=== PATIENT | female | born 1945 | race Caucasian/White ===

== ENCOUNTER 2018-03-26 09:43 | Emergency (ER) | payer MEDICARE ==
[~2018-03-26] VITALS: Ht 156.2 cm; Wt 84.2 kg
[2018-03-26] MEDS ORDERED: SODIUM CHLORIDE 0.9% 1,000ML IVBOLUS ONE (10:30)
[2018-03-26] MEDS ORDERED: SODIUM CHLORIDE FLUSH 10ML SYR IVF ONE (10:30)
[2018-03-26] MEDS ORDERED: FAMOTIDINE 20 MG/2 ML IVP ONE (10:30)
[2018-03-26] MEDS ORDERED: ONDANSETRON 2MG/ML, 2ML IVPush ONE (10:30)
[2018-03-26] MEDS ORDERED: MAALOX/HYOSCYAMINE/LIDOCAINE 45 ML BTL PO ONE (10:30)
[2018-03-26 10:40] LABS: BASOPHILS # (AUTO) 0.03 x10^3/uL (0-0.1); BASOPHILS % (AUTO) 1 % (0-1); EOSINOPHILS # (AUTO) 0.17 x10^3/uL (0-0.4); EOSINOPHILS % (AUTO) 3 % (1-7); LYMPHOCYTES % (AUTO) 29 % (22-44); MD NO; MEAN CORPUSCULAR HEMOGLOBIN 31.3 pg (27.0-34.8); MEAN CORPUSCULAR HGB CONC 33.8 g/dL (32.4-35.8); MEAN CORPUSCULAR VOLUME 92.8 fL (80-100); MEAN PLATELET VOLUME 8.9 fL (7.4-10.4); MONOCYTES # (AUTO) 0.49 x10^3/uL (0.2-0.8); MONOCYTES % (AUTO) 8 % (2-9); NEUTROPHILS # (AUTO) 3.92 x10^3/uL (1.8-6.8); NEUTROPHILS % (AUTO) 60 % (42-75); PLATELET COUNT 327 x10^3/uL (130-400); RED BLOOD COUNT 4.51 x10^6/uL (3.82-5.3); RED CELL DISTRIBUTION WIDTH 13.3 % (9.6-15.2)
[2018-03-26] MEDS ORDERED: FAMOTIDINE 20 MG/2 ML ONE (10:51)
[2018-03-26] MEDS ORDERED: MAALOX/HYOSCYAMINE/LIDOCAINE 45 ML BTL ONE (10:51)
[2018-03-26] MEDS ORDERED: ONDANSETRON 2MG/ML, 2ML ONE (10:51)
[2018-03-26 10:53] LABS: ALANINE AMINOTRANSFERASE 47 U/L (12-78); ALBUMIN 3.8 g/dL (3.4-5.0); ANION GAP 9 mmol/L (5-15); CALCIUM 9.2 mg/dL (8.5-10.1); CHLORIDE 103 mmol/L (98-107); CREATININE 0.89 mg/dL (0.55-1.02)
[2018-03-26 10:55] LABS: ALKALINE PHOSPHATASE 110 U/L (45-117); BILIRUBIN,TOTAL 0.8 mg/dL (0.2-1.0); TOTAL PROTEIN 7.2 g/dL (6.4-8.2)
[2018-03-26 11:19] LABS: MICROSCOPIC INDICATED
[2018-03-26 11:35] LABS: CULTURE INDICATED? YES
[2018-03-26] MEDS ORDERED: CEFTRIAXONE PMX 1GM/50ML 50 ML IV ONE (13:30)
[2018-03-26] MEDS ORDERED: CEFTRIAXONE PMX 1GM/50ML 50 ML ONE (13:33)
[2018-03-26 14:02] VITALS: BP 136/65
== END 2018-03-26 14:28 | disposition home or self-care (01) ==
LOC: ED 12:46
DX: N30.90 Cystitis, unspecified without hematuria (principal); I10 Essential (primary) hypertension; E78.00 Pure hypercholesterolemia, unspecified
CPT/HCPCS: 36415; 76700; 76830; 80053; 81001; 83690; 85025; 86677; 87086; 87147; 96365; 96375; 99285; J0696; J2405; J7030; S0028

== ENCOUNTER 2018-11-28 16:12 | Emergency (ER) | payer MEDICARE ==
[~2018-11-28] VITALS: Ht 167.6 cm; Wt 86.3 kg
[2018-11-28 16:15] VITALS: BP 184/86
[2018-11-28] MEDS ORDERED: ATOR40TA78 PO (16:55)
[2018-11-28] MEDS ORDERED: HYDROcodone/APAP 5/325 TABLET PO STA (17:01)
[2018-11-28] MEDS ORDERED: HYDROcodone/APAP 5/325 TABLET ONE (17:03)
[2018-11-28] MEDS ORDERED: HYDROcodone/APAP 5/325 TABLET PO ONE (18:00)
[2018-11-28] MEDS ORDERED: CYCLOBENZAPRINE 10 MG TABLET ONE (18:02)
[2018-11-28] MEDS ORDERED: CYCLOBENZAPRINE 10 MG TABLET PO STA (18:02)
--- NOTE | 2018-11-28 18:59 | NUR ---
Patient/Caregiver given discharge instructions and they have confirmed that they understand the instructions. Patient ambulatory with steady gait.
== END 2018-11-28 19:03 | disposition home or self-care (01) ==
LOC: ED 18:43
DX: G89.11 Acute pain due to trauma (principal); M51.36 Other intervertebral disc degeneration, lumbar region; E78.00 Pure hypercholesterolemia, unspecified; I10 Essential (primary) hypertension; W19.XXXA Unspecified fall, initial encounter; Y93.89 Activity, other specified; Y92.89 Other specified places as the place of occurrence of the external cause; Y99.8 Other external cause status
CPT/HCPCS: 72110; 99283

== ENCOUNTER 2019-10-17 18:57 | Emergency (ER) | payer MEDICARE ==
[~2019-10-17] VITALS: Ht 157.5 cm; Wt 85.7 kg
[~2019-10-17 18:57] MED LIST: AMOX1TAB61 PO; ATOR40TA78 PO; GABA300C10 PO; IBUP-1222 PO; LIDO700A20 TD; LINA5TAB PO; LOSA100T2 PO; METF500T17 PO
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
--- NOTE | 2019-10-17 19:28 | NUR ---
Pt given warm blanket. Pt continuing to ask for pain meds. Call light within reach.
[2019-10-17] MEDS ORDERED: CYCLOBENZAPRINE 10 MG TABLET PO ONE (19:30)
[2019-10-17] MEDS ORDERED: SODIUM CHLORIDE FLUSH 10ML SYR IVF ONE (19:30)
[2019-10-17] MEDS ORDERED: CYCLOBENZAPRINE 10 MG TABLET ONE (19:32)
[2019-10-17] MEDS ORDERED: MORPHINE SULFATE 4 MG/ML, 1ML ONE ×2 (19:33→20:56)
[2019-10-17] MEDS: MORPHINE SULFATE 4 MG/ML, 1ML IVPush PRN ×2 (19:38→20:58)
--- NOTE | 2019-10-17 19:41 | NUR ---
Pt medicated per MAR. Labs drawn. Pt to imaging.
[2019-10-17 19:47] LABS: BASOPHILS # (AUTO) 0.02 x10^3/uL (0-0.1); BASOPHILS % (AUTO) 0 % (0-1); EOSINOPHILS # (AUTO) 0.01 x10^3/uL (0-0.4); EOSINOPHILS % (AUTO) 0 % (1-7); LYMPHOCYTES # (AUTO) 1.37 x10^3/uL (1-3.4); LYMPHOCYTES % (AUTO) 15 % (22-44); MD NO; MEAN CORPUSCULAR HEMOGLOBIN 32.1 pg (27.0-34.8); MEAN CORPUSCULAR HGB CONC 33.6 g/dL (32.4-35.8); MEAN CORPUSCULAR VOLUME 95.4 fL (80-100); MEAN PLATELET VOLUME 8.6 fL (7.4-10.4); MONOCYTES # (AUTO) 0.37 x10^3/uL (0.2-0.8); MONOCYTES % (AUTO) 4 % (2-9); NEUTROPHILS # (AUTO) 7.58 x10^3/uL (1.8-6.8); NEUTROPHILS % (AUTO) 81 % (42-75); PLATELET COUNT 348 x10^3/uL (130-400); RED BLOOD COUNT 4.62 x10^6/uL (3.82-5.3); RED CELL DISTRIBUTION WIDTH 13.1 % (9.6-15.2)
[2019-10-17 19:57] LABS: ANION GAP 8 mmol/L (5-15); CALCIUM 9.2 mg/dL (8.5-10.1); CHLORIDE 103 mmol/L (98-107); CREATININE 0.84 mg/dL (0.55-1.02)
--- NOTE | 2019-10-17 20:23 | NUR ---
Urine collected via straight cath. Sterile technique used. Urine sent. Pt repositioned. Oral swabs given. Call light within reach.
[2019-10-17 20:36] LABS: MICROSCOPIC AUTO
[2019-10-17 20:39] LABS: CULTURE INDICATED? NO
--- NOTE | 2019-10-17 21:03 | NUR ---
Pt medicated with second dose of morphine. VS retaken. Pt on pulse ox. Call light within reach.
[2019-10-17] MEDS ORDERED: KETOROLAC 30 MG/1 ML IM ONE (21:30)
[2019-10-17] MEDS ORDERED: KETOROLAC 30 MG/1 ML ONE (21:59)
--- NOTE | 2019-10-17 22:00 | NUR ---
Pt d/c'd to home care. Pt alert and oriented. Pt able to stand and pivot with minimal assistance. Education provided including prescriptions, home care, follow-up and S/Sx to return. Pt and VU. Pt wheeled out of ER.
[2019-10-17 22:05] VITALS: BP 145/67
== END 2019-10-17 22:40 | disposition home or self-care (01) ==
LOC: ED 22:20
DX: G89.29 Other chronic pain (principal); M54.41 Lumbago with sciatica, right side; I10 Essential (primary) hypertension; E11.9 Type 2 diabetes mellitus without complications; E78.00 Pure hypercholesterolemia, unspecified
CPT/HCPCS: 36415; 72110; 80048; 81001; 82040; 85025; 96372; 96374; 96376; 99284; J1885; J2270